=== PATIENT | female | born 1945 | race African-American/Black ===

== ENCOUNTER 2020-02-17 22:30 | Inpatient (IN) | payer MEDICARE ==
[~2020-02-17] VITALS: Ht 160 cm; Wt 74.8 kg
[2020-02-17 22:30] VITALS: BP 138/62
[2020-02-18] MEDS ORDERED: PROMETHAZINE/DEXTROMETHORPHAN 6.25-15MG/5ML BOTTLE 120ML PO PRN (01:00)
[2020-02-18 05:02] LABS: CHLORIDE 108 mEq/L (98-107)
[2020-02-18 06:10] LABS: BASOPHILS % 0.4 % (0.0-2.0); EOSINOPHILS % 1.5 % (0.0-5.0); HEMATOCRIT. 29.6 % (36.0-48.0); HEMOGLOBIN. 9.9 g/dL (12.0-16.0); LYMPHOCYTES % 19.1 % (20.0-50.0); MEAN CORPUSCULAR HEMOGLOBIN 30.5 pg (28.0-32.0); MEAN CORPUSCULAR VOLUME 91.1 fL (81.0-99.0); MEAN PLATELET VOLUME 8.6 fl (7.4-10.4); MONOCYTES % 11.4 % (2.0-8.0); NEUTROPHILS % 67.6 % (40.0-76.0); PLATELET 199 x1000/uL (130-400); RED BLOOD CELL COUNT 3.25 mill/uL (4.2-5.4); RED CELL DISTRIBUTION WIDTH 18.7 % (11.6-14.6)
[2020-02-18] MEDS: PANTOPRAZOLE 40MG DR TABLET PO SCH (06:32)
[2020-02-18 07:43] VITALS: BP 117/60
[2020-02-18] MEDS: ENOXAPARIN 40MG/0.4ML SYR SUBCUT SCH (08:12)
[2020-02-18] MEDS: AZITHROMYCIN 250 MG TABLET PO SCH (08:12)
[2020-02-18] MEDS ORDERED: AMLODIPINE 2.5MG TABLET PO SCH (09:00)
[2020-02-18] MEDS: ALBUTEROL (0.083%) 2.5MG/3ML NEB HHN SCH ×3 (12:05→20:22)
[2020-02-18 20:00] VITALS: BP 124/66
[2020-02-19] MEDS: ALBUTEROL (0.083%) 2.5MG/3ML NEB HHN SCH ×5 (00:09→20:42)
[2020-02-19] MEDS: PANTOPRAZOLE 40MG DR TABLET PO SCH (06:50)
[2020-02-19 08:15] VITALS: BP 138/63
[2020-02-19] MEDS: AZITHROMYCIN 250 MG TABLET PO SCH (08:52)
[2020-02-19] MEDS: ENOXAPARIN 40MG/0.4ML SYR SUBCUT SCH (08:52)
[2020-02-19] MEDS: PREDNISONE 20MG TABLET PO SCH (16:45)
[2020-02-19 20:00] VITALS: BP 119/50
[2020-02-19] MEDS: FAMOTIDINE 20MG TABLET PO SCH (21:00)
[2020-02-20] MEDS: ALBUTEROL (0.083%) 2.5MG/3ML NEB HHN SCH ×2 (01:39→05:17)
[2020-02-20 07:21] LABS: BASOPHILS % 0.6 % (0.0-2.0); HEMATOCRIT. 28.9 % (36.0-48.0); HEMOGLOBIN. 9.6 g/dL (12.0-16.0); LYMPHOCYTES % 13.7 % (20.0-50.0); MEAN CORPUSCULAR HEMOGLOBIN 30.5 pg (28.0-32.0); MEAN CORPUSCULAR VOLUME 91.6 fL (81.0-99.0); MEAN PLATELET VOLUME 8.6 fl (7.4-10.4); MONOCYTES % 3.4 % (2.0-8.0); NEUTROPHILS % 82.3 % (40.0-76.0); PLATELET 198 x1000/uL (130-400); RED BLOOD CELL COUNT 3.16 mill/uL (4.2-5.4)
[2020-02-20 07:35] LABS: CHLORIDE 109 mEq/L (98-107)
[2020-02-20 07:41] LABS: PHOSPHORUS 2.9 mg/dL (2.5-4.9)
[2020-02-20 07:45] LABS: TOTAL IRON BINDING CAPACITY 189 ug/dL (250-450)
[2020-02-20 07:49] LABS: CREATINE KINASE 126 IU/L (26-192)
[2020-02-20 07:52] LABS: FOLIC ACID (FOLATE) SERUM 7.3 ng/mL (>5.38)
[2020-02-20 08:00] VITALS: BP 140/68
[2020-02-20] MEDS: FAMOTIDINE 20MG TABLET PO SCH ×2 (08:49→21:23)
[2020-02-20] MEDS: PREDNISONE 20MG TABLET PO SCH (08:49)
[2020-02-20] MEDS: ENOXAPARIN 40MG/0.4ML SYR SUBCUT SCH (08:50)
[2020-02-20] MEDS: CYANOCOBALAMIN 1000MCG/ML VIAL IM SCH (16:27)
[2020-02-20 17:15] LABS: INR 1.1; PROTHROMBIN TIME 11.7 sec (9.6-11.0)
[2020-02-20 20:00] VITALS: BP 135/57
[2020-02-20] MEDS: GUAIFENESIN 600MG ER TABLET PO SCH (21:23)
[2020-02-21 06:45] LABS: HEMOGLOBIN 10.4 g/dL (12.0-16.0); MEAN CORPUSCULAR HEMOGLOBIN 30.4 pg (28.0-32.0); PLATELET 195 x1000/uL (130-400); RED BLOOD CELL COUNT 3.41 mill/uL (4.2-5.4); RED CELL DISTRIBUTION WIDTH 18.6 % (11.6-14.6)
[2020-02-21 06:57] LABS: CHLORIDE 110 mEq/L (98-107)
[2020-02-21 08:00] VITALS: BP 150/78
[2020-02-21] MEDS ORDERED: APIXABAN 2.5 MG TABLET PO SCH (09:00)
[2020-02-21] MEDS: GUAIFENESIN 600MG ER TABLET PO SCH ×2 (09:18→21:17)
[2020-02-21] MEDS: CYANOCOBALAMIN 1000MCG/ML VIAL IM SCH (09:18)
[2020-02-21] MEDS: PREDNISONE 20MG TABLET PO SCH (09:18)
[2020-02-21] MEDS: ENOXAPARIN 40MG/0.4ML SYR SUBCUT SCH (09:19)
[2020-02-21] MEDS: FAMOTIDINE 20MG TABLET PO SCH ×2 (11:07→21:17)
[2020-02-21 20:00] VITALS: BP 144/77
[2020-02-21] MEDS: IPRATROPIUM/ALBUTEROL 0.5-3(2.5)MG/3ML NEB HHN PRN (20:20)
[2020-02-22 08:00] VITALS: BP 151/74
[2020-02-22] MEDS: APIXABAN 2.5 MG TABLET PO SCH ×2 (08:25→21:15)
[2020-02-22] MEDS: PREDNISONE 20MG TABLET PO SCH (08:25)
[2020-02-22] MEDS: GUAIFENESIN 600MG ER TABLET PO SCH ×2 (08:25→21:15)
[2020-02-22] MEDS: CYANOCOBALAMIN 1000MCG/ML VIAL IM SCH (08:26)
[2020-02-22] MEDS: FAMOTIDINE 20MG TABLET PO SCH ×2 (08:26→21:15)
[2020-02-22] MEDS: IPRATROPIUM/ALBUTEROL 0.5-3(2.5)MG/3ML NEB HHN PRN (21:10)
[2020-02-22 21:25] VITALS: BP 139/70
[2020-02-23 08:25] VITALS: BP 159/81
[2020-02-23] MEDS: CYANOCOBALAMIN 1000MCG/ML VIAL IM SCH (08:55)
[2020-02-23] MEDS: PREDNISONE 20MG TABLET PO SCH (08:55)
[2020-02-23] MEDS: GUAIFENESIN 600MG ER TABLET PO SCH ×2 (08:55→21:33)
[2020-02-23] MEDS: APIXABAN 2.5 MG TABLET PO SCH ×2 (08:55→21:33)
[2020-02-23 20:00] VITALS: BP 155/75
[2020-02-23] MEDS: FAMOTIDINE 20MG TABLET PO SCH (21:32)
[2020-02-24 06:10] LABS: 25-HYDROXY VITAMIN D3 30 ng/mL (.)
[2020-02-24 06:13] LABS: BASOPHILS % 0.3 % (0.0-2.0); EOSINOPHILS % 0.2 % (0.0-5.0); HEMATOCRIT. 29.5 % (36.0-48.0); HEMOGLOBIN. 9.8 g/dL (12.0-16.0); LYMPHOCYTES % 23.1 % (20.0-50.0); MEAN CORPUSCULAR HEMOGLOBIN 30.2 pg (28.0-32.0); MEAN CORPUSCULAR VOLUME 90.6 fL (81.0-99.0); MEAN PLATELET VOLUME 8.3 fl (7.4-10.4); MONOCYTES % 8.8 % (2.0-8.0); NEUTROPHILS % 67.6 % (40.0-76.0); PLATELET 173 x1000/uL (130-400); RED BLOOD CELL COUNT 3.25 mill/uL (4.2-5.4); RED CELL DISTRIBUTION WIDTH 18.8 % (11.6-14.6)
[2020-02-24 06:36] LABS: CHLORIDE 110 mEq/L (98-107)
[2020-02-24 08:00] VITALS: BP 157/90
[2020-02-24] MEDS ORDERED: AMLODIPINE 5MG TABLET PO SCH (08:15)
[2020-02-24] MEDS: PREDNISONE 20MG TABLET PO SCH (08:31)
[2020-02-24] MEDS: GUAIFENESIN 600MG ER TABLET PO SCH ×2 (08:32→20:41)
[2020-02-24] MEDS: CYANOCOBALAMIN 1000MCG/ML VIAL IM SCH (08:32)
[2020-02-24] MEDS: APIXABAN 2.5 MG TABLET PO SCH ×2 (08:32→20:41)
[2020-02-24] MEDS: FAMOTIDINE 20MG TABLET PO SCH ×2 (08:32→20:40)
[2020-02-24] MEDS ORDERED: ERGOCALCIFEROL 50000UNITS CAPSULE PO SCH (15:30)
[2020-02-24] MEDS ORDERED: METOPROLOL TARTRATE 25MG TABLET PO SCH (15:30)
[2020-02-24 20:00] VITALS: BP 139/77
[2020-02-24] MEDS: AMLODIPINE 5MG TABLET PO SCH (20:40)
[2020-02-24] MEDS: METOPROLOL TARTRATE 25MG TABLET PO SCH (20:41)
[2020-02-25] MEDS: BISACODYL 5MG TABLET PO PRN (06:25)
[2020-02-25 08:04] VITALS: BP 153/72
[2020-02-25] MEDS: METOPROLOL TARTRATE 25MG TABLET PO SCH (08:42)
[2020-02-25] MEDS: APIXABAN 2.5 MG TABLET PO SCH ×2 (08:42→21:22)
[2020-02-25] MEDS: FAMOTIDINE 20MG TABLET PO SCH ×2 (08:42→21:22)
[2020-02-25] MEDS: PREDNISONE 20MG TABLET PO SCH (08:42)
[2020-02-25] MEDS: GUAIFENESIN 600MG ER TABLET PO SCH ×2 (08:42→21:22)
[2020-02-25] MEDS: AMLODIPINE 5MG TABLET PO SCH ×2 (08:43→21:22)
[2020-02-25 20:00] VITALS: BP 138/80
[2020-02-25] MEDS: METOPROLOL TARTRATE 50MG TABLET PO SCH (21:00)
[2020-02-26 08:00] VITALS: BP 156/73
[2020-02-26] MEDS: PREDNISONE 20MG TABLET PO SCH (10:27)
[2020-02-26] MEDS: AMLODIPINE 5MG TABLET PO SCH ×2 (10:27→21:27)
[2020-02-26] MEDS: GUAIFENESIN 600MG ER TABLET PO SCH ×2 (10:27→21:26)
[2020-02-26] MEDS: FAMOTIDINE 20MG TABLET PO SCH ×2 (10:27→21:25)
[2020-02-26] MEDS: METOPROLOL TARTRATE 50MG TABLET PO SCH ×2 (10:27→21:00)
[2020-02-26] MEDS: APIXABAN 2.5 MG TABLET PO SCH ×2 (10:28→21:25)
[2020-02-26 17:16] VITALS: BP 135/75
[2020-02-26] MEDS: LOSARTAN POTASSIUM 25 MG TABLET PO SCH (17:16)
[2020-02-26 20:00] VITALS: BP 129/61
[2020-02-27 06:27] LABS: BASOPHILS % 0.2 % (0.0-2.0); EOSINOPHILS % 0.2 % (0.0-5.0); HEMATOCRIT. 30.5 % (36.0-48.0); HEMOGLOBIN. 10.2 g/dL (12.0-16.0); LYMPHOCYTES % 23.6 % (20.0-50.0); MEAN CORPUSCULAR HEMOGLOBIN 30.6 pg (28.0-32.0); MEAN CORPUSCULAR VOLUME 91.6 fL (81.0-99.0); MEAN PLATELET VOLUME 8.2 fl (7.4-10.4); MONOCYTES % 9.1 % (2.0-8.0); NEUTROPHILS % 66.9 % (40.0-76.0); PLATELET 160 x1000/uL (130-400); RED BLOOD CELL COUNT 3.33 mill/uL (4.2-5.4); RED CELL DISTRIBUTION WIDTH 18.8 % (11.6-14.6)
[2020-02-27 06:51] LABS: CHLORIDE 109 mEq/L (98-107)
[2020-02-27 08:00] VITALS: BP 129/61
[2020-02-27] MEDS: APIXABAN 2.5 MG TABLET PO SCH ×2 (08:45→20:51)
[2020-02-27] MEDS: METOPROLOL TARTRATE 50MG TABLET PO SCH ×2 (08:46→20:58)
[2020-02-27] MEDS: LOSARTAN POTASSIUM 25 MG TABLET PO SCH (08:46)
[2020-02-27] MEDS: GUAIFENESIN 600MG ER TABLET PO SCH (08:46)
[2020-02-27] MEDS: AMLODIPINE 5MG TABLET PO SCH ×2 (08:46→20:52)
[2020-02-27] MEDS: PREDNISONE 20MG TABLET PO SCH (08:47)
[2020-02-27] MEDS: FAMOTIDINE 20MG TABLET PO SCH ×2 (08:47→20:51)
[2020-02-27 20:00] VITALS: BP 129/66
[2020-02-28] MEDS: BISACODYL 5MG TABLET PO PRN (04:57)
[2020-02-28 08:00] VITALS: BP 134/73
[2020-02-28] MEDS: PREDNISONE 20MG TABLET PO SCH (08:25)
[2020-02-28] MEDS: FAMOTIDINE 20MG TABLET PO SCH ×2 (08:25→20:33)
[2020-02-28] MEDS: APIXABAN 2.5 MG TABLET PO SCH ×2 (08:25→20:33)
[2020-02-28] MEDS: METOPROLOL TARTRATE 50MG TABLET PO SCH ×2 (08:25→20:38)
[2020-02-28] MEDS: AMLODIPINE 5MG TABLET PO SCH ×2 (08:27→20:34)
[2020-02-28] MEDS: LOSARTAN POTASSIUM 25 MG TABLET PO SCH (08:27)
[2020-02-28 20:00] VITALS: BP 115/64
[2020-02-29] MEDS: FAMOTIDINE 20MG TABLET PO SCH ×2 (08:15→21:10)
[2020-02-29] MEDS: PREDNISONE 10MG TABLET PO SCH (08:16)
[2020-02-29] MEDS: LOSARTAN POTASSIUM 25 MG TABLET PO SCH (08:17)
[2020-02-29] MEDS: METOPROLOL TARTRATE 50MG TABLET PO SCH ×2 (08:17→21:10)
[2020-02-29] MEDS: AMLODIPINE 5MG TABLET PO SCH ×2 (08:18→21:08)
[2020-02-29] MEDS: APIXABAN 2.5 MG TABLET PO SCH ×2 (08:18→21:11)
[2020-02-29 08:22] VITALS: BP 130/56
[2020-02-29 20:00] VITALS: BP 127/62
[2020-03-01 08:00] VITALS: BP 148/70
[2020-03-01] MEDS: LOSARTAN POTASSIUM 25 MG TABLET PO SCH (08:43)
[2020-03-01] MEDS: APIXABAN 2.5 MG TABLET PO SCH ×2 (08:43→20:57)
[2020-03-01] MEDS: FAMOTIDINE 20MG TABLET PO SCH ×2 (08:44→20:57)
[2020-03-01] MEDS: AMLODIPINE 5MG TABLET PO SCH ×2 (08:44→20:58)
[2020-03-01] MEDS: PREDNISONE 10MG TABLET PO SCH (08:44)
[2020-03-01] MEDS: METOPROLOL TARTRATE 50MG TABLET PO SCH ×2 (08:44→20:58)
[2020-03-01 20:00] VITALS: BP 123/68
[2020-03-02 06:23] LABS: BASOPHILS % 0.6 % (0.0-2.0); EOSINOPHILS % 1.3 % (0.0-5.0); LYMPHOCYTES % 33.5 % (20.0-50.0); MEAN CORPUSCULAR HEMOGLOBIN 30.3 pg (28.0-32.0); MEAN CORPUSCULAR VOLUME 91.2 fL (81.0-99.0); MONOCYTES % 10.7 % (2.0-8.0); NEUTROPHILS % 53.9 % (40.0-76.0); PLATELET 187 x1000/uL (130-400); RED BLOOD CELL COUNT 3.62 mill/uL (4.2-5.4); RED CELL DISTRIBUTION WIDTH 18.6 % (11.6-14.6)
[2020-03-02 06:27] LABS: CHLORIDE 106 mEq/L (98-107)
[2020-03-02 08:00] VITALS: BP 138/60
[2020-03-02] MEDS: AMLODIPINE 5MG TABLET PO SCH ×2 (08:52→21:03)
[2020-03-02] MEDS: LOSARTAN POTASSIUM 25 MG TABLET PO SCH (08:52)
[2020-03-02] MEDS: METOPROLOL TARTRATE 50MG TABLET PO SCH ×2 (08:53→21:04)
[2020-03-02] MEDS: APIXABAN 2.5 MG TABLET PO SCH (08:54)
[2020-03-02] MEDS: FAMOTIDINE 20MG TABLET PO SCH ×2 (08:54→21:04)
[2020-03-02] MEDS: PREDNISONE 10MG TABLET PO SCH (08:54)
[2020-03-02] MEDS ORDERED: ERGOCALCIFEROL 50000UNITS CAPSULE PO SCH (09:00)
[2020-03-02] MEDS ORDERED: METO-539 PO (16:21)
[2020-03-02] MEDS ORDERED: LOSA25TA3 PO (16:21)
[2020-03-02] MEDS ORDERED: AMLO5TAB88 PO (16:21)
[2020-03-02 20:00] VITALS: BP 122/67
[2020-03-03 08:00] VITALS: BP_SYST 121; BP_DIAS 59; BP_DIAS 79
[2020-03-03] MEDS: FAMOTIDINE 20MG TABLET PO SCH (09:29)
[2020-03-03] MEDS: METOPROLOL TARTRATE 50MG TABLET PO SCH (09:29)
[2020-03-03] MEDS: LOSARTAN POTASSIUM 25 MG TABLET PO SCH (09:30)
[2020-03-03] MEDS: AMLODIPINE 5MG TABLET PO SCH (09:30)
[2020-03-03 13:13] VITALS: BP 121/79
== END 2020-03-03 15:10 | disposition home health service (06) | DRG 193 ==
PROVIDERS: ADMIT Physical Medicine & Rehabilitation Spinal Cord Injury Medicine; ATTEND Internal Medicine Nephrology
DX: J18.9 Pneumonia, unspecified organism (principal); A41.9 Sepsis, unspecified organism; N17.9 Acute kidney failure, unspecified; M62.82 Rhabdomyolysis; E46 Unspecified protein-calorie malnutrition; I10 Essential (primary) hypertension; D64.9 Anemia, unspecified; E11.9 Type 2 diabetes mellitus without complications; M75.01 Adhesive capsulitis of right shoulder; M06.9 Rheumatoid arthritis, unspecified; R53.81 Other malaise; E55.9 Vitamin D deficiency, unspecified; M19.90 Unspecified osteoarthritis, unspecified site; I95.9 Hypotension, unspecified; Z79.01 Long term (current) use of anticoagulants; Z86.73 Personal history of transient ischemic attack (TIA), and cerebral infarction without residual deficits; Z68.29 Body mass index [BMI] 29.0-29.9, adult; R26.9 Unspecified abnormalities of gait and mobility; M79.609 Pain in unspecified limb
CPT/HCPCS: 36415; 71045; 80048; 80053; 82306; 82550; 82607; 82728; 82746; 83540; 83550; 83735; 83880; 84100; 84134; 84443; 85025; 85027; 85379; 92523; 92610; 93005; 93306; 93970; 94640; 97110; 97112; 97116; 97162; 97166; 97530; 97535; J1650; J3420; J7512